=== PATIENT | female | born 1975 | race Two or more races ===

== ENCOUNTER 2021-10-11 04:01 | Observation (INO) | payer BC, OTHER ==
[2021-10-11 04:19] VITALS: BMI 31.0
[2021-10-11] MEDS ORDERED: LACTATED RINGERS SOLUTION 1000 ML INFUS.BAG IV ONE (04:19)
[2021-10-11] MEDS ORDERED: ACETAMINOPHEN 1000 MG/100 ML BAG IVPB ONE (04:19)
[2021-10-11] MEDS ORDERED: ACETAMINOPHEN INJECTION 100 ML IVPB ONE (04:30)
[2021-10-11 04:38] LABS: BASO % 0.7 % (0-2.0); EOS % 1.8 % (0-4.5); HEMATOCRIT 34.9 % (32.4-45.2); HEMOGLOBIN 11.4 GM/dL (10.7-15.3); LYMPH % 46.1 % (8-40); MCH 23.3 pg (25.7-33.7); MCHC 32.7 g/dl (32.0-36.0); MEAN CELL VOLUME 71.2 fl (80-96); MEAN PLT VOLUME 6.8 fl (7.5-11.1); NEUT % 39.4 % (42.8-82.8); PLATELET COUNT 273 10^3/uL (134-434); RBC 4.91 M/mm3 (3.60-5.2); RDW 16.4 % (11.6-15.6); WHITE BLOOD COUNT 2.6 K/mm3 (4.0-10.0)
[2021-10-11 04:52] LABS: INR 0.98 (0.83-1.09); PROTHROMBIN TIME (PATIENT) 11.3 SEC (9.7-13.0)
[2021-10-11 04:54] LABS: ACTIVATED PTT 30.2 SECONDS (25.2-36.5)
[2021-10-11 05:08] LABS: CALCIUM 8.4 mg/dL (8.5-10.1)
[2021-10-11 05:09] LABS: ALBUMIN 3.3 g/dl (3.4-5.0); BLOOD UREA NITROGEN 16.8 mg/dL (7-18)
[2021-10-11 05:12] LABS: CREATININE 0.6 mg/dL (0.55-1.3)
[2021-10-11 05:13] LABS: BILIRUBIN,TOTAL 0.3 mg/dL (0.2-1); TOT PROT 6.8 g/dl (6.4-8.2)
[2021-10-11 16:58] VITALS: BP 101/63; PULSE 87; TEMP 97.8
[2021-10-11] MEDS ORDERED: ACETAMINOPHEN 325 MG TABLET (FP) PO ONE (17:01)
[2021-10-11] MEDS ORDERED: ACETAMINOPHEN 325 MG TABLET (FP) ONE (17:13)
== END 2021-10-11 17:42 | disposition home or self-care (01) ==
LOC: JER 04:01 → JERBED 07:06
PROVIDERS: ADMIT Internal Medicine; ATTEND Internal Medicine
PROC: 3E033NZ Introduction of Analgesics, Hypnotics, Sedatives into Peripheral Vein, Percutaneous Approach (ICD-10-PCS; principal; 2021-10-11)
PROC: 3E0337Z Introduction of Electrolytic and Water Balance Substance into Peripheral Vein, Percutaneous Approach (ICD-10-PCS; 2021-10-11)
DX: R07.89 Other chest pain (principal); F41.9 Anxiety disorder, unspecified; Z98.84 Bariatric surgery status; E66.8 Other obesity; Z68.31 Body mass index [BMI] 31.0-31.9, adult
CPT/HCPCS: 36415; 71045-TC-FY; 80053; 80061; 83036; 83690; 84439; 84443; 84484; 85025; 85610; 85730; 86850; 86900; 86901; 93005; 93010; 93351; 96374; 99285-25; C9803-CS; G0378; U0003; U0005

== ENCOUNTER 2023-01-17 12:50 | Emergency (ER) | payer OTHER, BC ==
[2023-01-17 13:18] VITALS: BP 120/67; PULSE 91; RESP 18; TEMP 98.3; BMI 35.4
== END 2023-01-17 17:44 | disposition home or self-care (01) ==
LOC: JERFT 12:50 → JER 12:50 → JERFT 17:44
DX: R07.89 Other chest pain (principal); V49.40XA Driver injured in collision with unspecified motor vehicles in traffic accident, initial encounter; Y93.I9 Activity, other involving external motion
CPT/HCPCS: 71046-TC-FY; 71101-TC-RT-FY; 99283-25